=== PATIENT | male | born 1990 | race Caucasian/White ===

== ENCOUNTER 2016-12-07 16:31 | Emergency (ER) | payer SELFPAY ==
[2016-12-07 16:56] VITALS: BP 130/92; PULSE 100; TEMP 98.1; BMI 27.2
[2016-12-07] MEDS ORDERED: KETOROLAC TROMETHAMINE 60 MG/2 ML VIAL ONE (17:17)
[2016-12-07] MEDS ORDERED: OXYCODONE/APAP 5/325MG COMBO TABLET ONE (17:17)
[2016-12-07] MEDS ORDERED: CYCLOBENZAPRINE HCL 10 MG TABLET (FP) ONE (17:17)
--- NOTE | 2016-12-07 17:32 | PDOC ---
History of Present Illness - General Chief Complaint: Back Pain Stated Complaint: BACK PAIN Time Seen by Provider: 12/07/16 17:10 History Source: Patient Exam Limitations: No Limitations - History of Present Illness Initial Comments: 12/07/16 17:49 Patient works for [employer], and while lifting a heavy patient had an acute onset of low back pain. Feels is a muscle strain, has never injured his back before. Has difficulty ambulating, however denies numbness or tingling to his hands or feet. 12/07/16 17:52 Occurred: reports: this afternoon Severity: reports: moderate, severe Pain Location: reports: back Method of Injury: Yes: other ( lifting) Modifying Factors: improves with: None Loss of Consciousness: no loss of consciousness Past History - Travel Traveled outside of the country in the last 30 days: No Close contact w/someone who was outside of country & ill: No - Past Medical History Allergies/Adverse Reactions: Allergies Allergy/AdvReac Type Severity Reaction Status Date / Time No Known Allergies Allergy Verified 12/07/16 16:43 Home Medications: Ambulatory Orders Cyclobenzaprine HCl [Flexeril 10 mg] 10 mg PO BID PRN #14 tablet 12/07/16 Other medical history: denies - Immunization History Immunization Up to Date: Yes - Psycho/Social/Smoking Cessation Hx Suicidal Ideation: No Smoking History: Never smoked Information on smoking cessation initiated: No Hx Alcohol Use: No Drug/Substance Use Hx: No Trauma Specific PMHX - Complaint Specific PMHX Back Injury: Yes Neck Injury: No Review of Systems - Review of Systems Able to Perform ROS?: Yes Is the patient limited [place] proficient: Yes Constitutional: Yes: Symptoms Reported, See HPI, Malaise HEENTM: Yes: See HPI. No: Symptoms Reported Respiratory: Yes: See HPI. No: Symptoms reported Musculoskeletal: Yes: Symptoms Reported, See HPI, Back Pain, Muscle Pain Integumentary: Yes: Symptoms Reported Neurological: Yes: Symptoms reported, See HPI, Tingling All Other Systems: Reviewed and Negative *Physical Exam - Vital Signs Last Vital Signs Temp Pulse Resp BP Pulse Ox 98.1 F 100 H 20 130/92 99 12/07/16 16:43 12/07/16 16:43 12/07/16 16:43 12/07/16 16:43 12/07/16 16:43 - Physical Exam General Appearance: Yes: Nourished, Appropriately Dressed, Apparent Distress HEENT: positive: IDALMIS, Normal ENT Inspection, TMs Normal, Pharynx Normal Neck: positive: Supple Respiratory/Chest: positive: Lungs Clear Gastrointestinal/Abdominal: positive: Soft Musculoskeletal: positive: Normal Inspection Extremity: positive: Normal Range of Motion Integumentary: positive: Normal Color, Dry, Warm Neurologic: positive: supervisor customer services II-XII NML intact, Fully Oriented, Alert, Motor Strength /5 Progress Note - Progress Note Progress Note: Acute back strain, will treat with NSAIDs and cyclobenzaprine *DC/Admit/Observation/Transfer Diagnosis at time of Disposition: Low back strain Qualifiers: Encounter type: initial encounter Qualified Code(s): S39.012A - Strain of muscle, fascia and tendon of lower back, initial encounter - Discharge Dispostion Disposition: HOME Condition at time of disposition: Stable Admit: No - Prescriptions Prescriptions: Cyclobenzaprine HCl [Flexeril 10 mg] 10 mg PO BID PRN #14 tablet PRN Reason: spasm - Referrals Referrals: Kennedy Hammond MD [Staff Physician] - - Patient Instructions Printed Discharge Instructions: DI for Back Strain or Sprain Additional Instructions: Rest, no heavy lifting or exercise until pain is resolved Hot soaks to neck and low back as often as possible/hot showers or Jacuzzis No massage or therapy until spasm is gone Continue ibuprofen 2-200 mg tablets every 6 hours for the next 3 days then as needed for pain and swelling Cyclobenzaprine 1-10mg every 8 hours as needed for spasm If not significant improvement within 24 hours with medication and rest regime, followup with private physician for change in medications and /or therapy. - Post Discharge Activity Work/School Note: Back to Work
[2016-12-07] MEDS ORDERED: CYCLOBENZAPRINE HCL 10 MG TABLET (FP) PO ONE (17:45)
[2016-12-07] MEDS ORDERED: KETOROLAC TROMETHAMINE 60 MG/2 ML VIAL IM ONE (17:45)
== END 2016-12-07 17:50 | disposition home or self-care (01) ==
LOC: JER 16:31
PROC: 3E0233Z Introduction of Anti-inflammatory into Muscle, Percutaneous Approach (ICD-10-PCS; principal; 2016-12-07)
DX: S39.012A Strain of muscle, fascia and tendon of lower back, initial encounter (principal); X58.XXXA Exposure to other specified factors, initial encounter; Y93.89 Activity, other specified; Y92.9 Unspecified place or not applicable; Y99.0 Civilian activity done for income or pay
CPT/HCPCS: 99281-25

== ENCOUNTER 2024-06-23 07:31 | Emergency (ER) | payer OTHER ==
[2024-06-23 07:41] VITALS: BP 147/95; PULSE 74; RESP 22; TEMP 98.1; BMI 28.4
== END 2024-06-23 09:02 | disposition home or self-care (01) ==
LOC: JERFT 07:31 → JER 07:31 → JERFT 09:02
DX: R09.81 Nasal congestion (principal); R05.9 Cough, unspecified; J06.9 Acute upper respiratory infection, unspecified; Z20.822 Contact with and (suspected) exposure to COVID-19
CPT/HCPCS: 0241U-QW; 99283-25